=== PATIENT | female | born 1995 | race Caucasian/White ===

== ENCOUNTER 2025-03-11 17:49 | Emergency (ER) | payer OTHER ==
[~2025-03-11] VITALS: Ht 152.4 cm; Wt 54.4 kg
[2025-03-11 17:50] VITALS: BP 126/79
[2025-03-11] MEDS ORDERED: TETRACAINE HCL 0.5% OPHT DROP 2 ML BOTTLE ONE (19:02)
[2025-03-11 19:25] VITALS: BP 128/77; TEMP 98; O2SAT 97
[2025-03-11] MEDS: TETRACAINE HCL 0.5% OPHT DROP 2 ML BOTTLE OP ONE (19:25)
== END 2025-03-11 19:26 | disposition home health service (06) ==
LOC: ER 17:49
DX: H57.11 Ocular pain, right eye (principal)
CPT/HCPCS: A4606; A4663